=== PATIENT | female | born 1980 | race Caucasian/White ===

== ENCOUNTER 2016-09-06 23:58 | Emergency (ER) | payer OTHER ==
[~2016-09-06 23:58] MED LIST: CARASPUDL PO; CRANBERRY300 MG PO; DENIES MEDS; MACROBID PO; NASONEX NAS; NEXIUM40 PO; PROBIOTIC; RANITIDINE300 MG PO; VERMOX PO
[2016-09-07 03:31] LABS: BASOPHILS 0.1 %; BASOPHILS ABSOLUTE 0.01 10/3/uL (0.0-0.16); EOSINOPHILS ABSOLUTE 0.22 10/3/uL (0.0-0.53); ER CBC TAT 0 Hrs 05 Mins; HEMATOCRIT 37.4 % (36.0-48.0); HEMOGLOBIN 12.8 g/dL (12.0-16.0); IMMATURE GRANULOCYTES 0.4 %; IMMATURE GRANULOCYTES ABSOLUTE 0.03 10/3/uL (0.0-0.11); LYMPHOCYTES 34.7 %; LYMPHOCYTES ABSOLUTE 2.55 10/3/uL (0.67-4.30); MEAN CORPUS HGB CONC 34.2 g/dL (32.0-36.0); MEAN PLATELET VOLUME 11.4 fL (9.2-13.0); MONOCYTES 6.7 %; MONOCYTES ABSOLUTE 0.49 10/3/uL (0.21-1.20); NEUTROPHILS 55.1 %; NEUTROPHILS ABSOLUTE 4.04 10/3/uL (2.02-8.40); PLATELET COUNT 191 10/3/uL (150-400); RBC DISTRIBUTION WIDTH 13.2 % (12.0-16.0); RED CELL COUNT 4.26 10/6/uL (4.0-5.6); WHITE BLOOD CELLS 7.3 10/3/uL (4.5-10.5)
[2016-09-07 03:42] LABS: MANUAL DIFF NO %; MEAN CORPUSCULAR VOLUME 87.8 fL (80-100)
[2016-09-07 03:51] LABS: BUN (BLOOD UREA NITROGEN) 11 MG/DL (6-23); CALCIUM, SERUM 8.6 MG/DL (8.5-10.4); CHEST PAIN PROFILE TAT 0 Hrs 25 Mins; CHLORIDE, SERUM 106 MMOL/L (96-112); CO2 (CARBON DIOXIDE) 26 MMOL/L (24-34); CREATININE 0.85 MG/DL (0.55-1.02); GFR AFRICAN AMERICAN 101 ML/MIN (>=60); GFR NON AFRICAN AMERICAN 87 ML/MIN (>=60); GLUCOSE, SERUM 96 MG/DL (60-99); HCG SERUM QUANTITATIVE <1.0 IU/L (0-6); POTASSIUM, SERUM 3.5 MMOL/L (3.5-5.3); SODIUM, SERUM 141 MMOL/L (135-148); TROPONIN I <0.02 NG/ML (<0.05)
[2016-09-07 03:53] LABS: INTERNATIONAL NORMAL RATI 1.1 UNITS (-); PROTIME (NOT ORD) 13.7 SEC (12.0-14.5)
[2016-09-07 03:54] LABS: PARTIAL THROMBO TIME 30.5 SEC (22.5-37.2)
[2016-09-19] MEDS ORDERED: VIT D 3 (10:37)
[2016-09-19] MEDS ORDERED: SYSTANE OPH (10:38)
[2016-09-19] MEDS ORDERED: MEGA RED (10:38)
== END 2016-09-07 05:16 | disposition home or self-care (01) ==
LOC: ER 23:58
PROVIDERS: Specialist
DX: G43.909 Migraine, unspecified, not intractable, without status migrainosus (principal); Z88.5 Allergy status to narcotic agent; Z79.899 Other long term (current) drug therapy
CPT/HCPCS: 80048; 83735; 84484; 84702; 85025; 85610; 85730; 93005; 99284

== ENCOUNTER 2016-09-28 06:58 | Day surgery (SDC) | payer OTHER ==
--- NOTE | ~2016-09-28 | OP ---
Record Of [facility] [address] [place]. [address] NAME: AVA SHARPE : 76 STATUS : REG [facility] PAT#: [id number] AGE: 36 ADM/REG DATE : 09/28/16 MR#: [id number] REPORT SERV DATE: 09/28/16 DICTATED BY: DANIELLE CONROY DATE: 09/28/16 REPORT STATUS : Draft TRANSCRIBED BY: MODL DATE: 09/28/16 DATE OF PROCEDURE: 09/28/2016 PREOPERATIVE DIAGNOSES: 1. Sinus headaches. 2. Left maxillary sinus cyst. 3. Bilateral chronic frontal sinusitis. 4. Bilateral chronic maxillary sinusitis. 5. Bilateral chronic sphenoid sinusitis. POSTOPERATIVE DIAGNOSES: 1. Sinus headaches. 2. Left maxillary sinus cyst. 3. Bilateral chronic frontal sinusitis. 4. Bilateral chronic maxillary sinusitis. 5. Bilateral chronic sphenoid sinusitis. PROCEDURES: 1. Left endoscopic maxillary sinus antrostomy with excision of maxillary sinus cyst. 2. Right endoscopic middle meatus antrostomy. 3. Bilateral endoscopic frontal sinusotomy. 4. Bilateral endoscopic sphenoidotomy. ANESTHESIA: General. COMPLICATIONS: None. COUNTS: All counts were correct following the procedure. BLOOD LOSS: 5 mL. PREOPERATIVE INFORMED CONSENT: We discussed the risks and benefits of surgery including, but not limited to, bleeding, infection, possible CSF leak, possible ocular injury including blindness, possible need for revision surgery, possible recurrence of the cyst. She understands the risks and benefits of surgery and consent is on chart. PROCEDURE IN DETAIL: The patient was brought to the operating suite and placed on the operating table in the supine position. General endotracheal anesthesia was initiated without incident. The patient's head and neck was cleaned, prepped, and draped in the usual sterile fashion. Following this, the nasal frontal duct was cannulated using an Acclarent frontal sinus introducer. Once the wire was in place, using the transillumination technique, balloon was advanced over the wire across the nasal frontal duct and dilated up to 10 atmospheres along the length of the nasal frontal duct. The procedure was repeated on the right hand side in a similar fashion. Then, on the right maxillary sinus, the wire was advanced across the maxillary sinus infundibulum and again using the transillumination technique once the wire was in place, the balloon was advanced across the wire and dilated Record Of [facility] [address] [place]. [address] NAME: AVA SHARPE : 76 STATUS : REG [facility] PAT#: [id number] AGE: 36 ADM/REG DATE : 09/28/16 MR#: [id number] REPORT SERV DATE: 09/28/16 DICTATED BY: DANIELLE CONROY DATE: 09/28/16 REPORT STATUS : Draft TRANSCRIBED BY: GERSON DATE: 09/28/16 up to 10 atmospheres along the length of the infundibulum. Attention was then taken to the right sphenoid sinus. Using the Acclarent introducer, the wire was advanced across the sphenoid sinus ostium and the balloon was then advanced over the wire and dilated up to 10 atmospheres enlarging the sphenoid sinus ostium. This was repeated on the left hand side in a similar fashion. Using a 0, 30, as well as a 45-degree scope, the previous antrostomy site there was enlarged using pediatric backbiting forceps, and there was a small cyst in the anterior aspect of the floor of the maxillary sinus. Standard instrumentation, but not reached the cyst, so a 22- gauge 3.5 inch spinal needle was then curved and adapted to reach the cyst, but the cyst was then marsupialized, a moderate amount of serous fluid emitted from the cyst without difficulty and the nasopharynx was suctioned free of any blood clots. The patient was awakened from anesthesia and taken to the recovery room in stable condition. GARY/GERSON Danielle Conroy M.D. / [id number] CC: Cara Chapman M.D.
[~2016-09-28 06:58] MED LIST changes: +MEGA RED; +SYSTANE OPH; +VIT D 3
== END 2016-09-28 23:59 | disposition home or self-care (01) ==
LOC: MSC 06:58
PROVIDERS: Otolaryngology
PROC: 099T4ZZ Drainage of Left Frontal Sinus, Percutaneous Endoscopic Approach (ICD-10-PCS; 2016-09-28)
PROC: 099X4ZZ Drainage of Left Sphenoid Sinus, Percutaneous Endoscopic Approach (ICD-10-PCS; 2016-09-28)
PROC: 099W4ZZ Drainage of Right Sphenoid Sinus, Percutaneous Endoscopic Approach (ICD-10-PCS; 2016-09-28)
PROC: 099Q4ZZ Drainage of Right Maxillary Sinus, Percutaneous Endoscopic Approach (ICD-10-PCS; 2016-09-28)
PROC: 099R4ZZ Drainage of Left Maxillary Sinus, Percutaneous Endoscopic Approach (ICD-10-PCS; principal; 2016-09-28 08:15)
PROC: 09BR4ZZ Excision of Left Maxillary Sinus, Percutaneous Endoscopic Approach (ICD-10-PCS; 2016-09-28 08:15)
PROC: 099S4ZZ Drainage of Right Frontal Sinus, Percutaneous Endoscopic Approach (ICD-10-PCS; 2016-09-28 08:15)
DX: J32.0 Chronic maxillary sinusitis (principal); J32.1 Chronic frontal sinusitis; J32.3 Chronic sphenoidal sinusitis; J34.1 Cyst and mucocele of nose and nasal sinus; R51 Headache; R00.0 Tachycardia, unspecified; M19.90 Unspecified osteoarthritis, unspecified site; K31.84 Gastroparesis; K21.9 Gastro-esophageal reflux disease without esophagitis; F41.9 Anxiety disorder, unspecified; I95.1 Orthostatic hypotension; G58.9 Mononeuropathy, unspecified; Z88.5 Allergy status to narcotic agent; Z79.899 Other long term (current) drug therapy; G43.909 Migraine, unspecified, not intractable, without status migrainosus; I49.9 Cardiac arrhythmia, unspecified
CPT/HCPCS: 84703; A9270-GY; C1726; J0330; J0690; J2250; J2270; J2405; J2710; J2765; J3010